=== PATIENT | female | born 1960 | race Caucasian/White ===

== ENCOUNTER → 2022-01-21 14:52 | Outpatient (REF) | payer BC, OTHER, SELFPAY ==
--- NOTE | 2022-01-21 15:09 | CA_ITS ---
Transthoracic Echocardiogram Patient (Last, First, Middle): Lily Lomeli, Gender: Female Date of : 1960 Age: 61 Procedure Date: 01/21/2022 Procedure Type: Transthoracic Echocardiogram Location: [facility] Height: 165.1 cm Weight: 99.79 kg BSA: 2.06 m2 Heart Rate: bpm BP: 140 / 72 mmHg Hat Model: DARBY Referring MD: Earnest Harvey MD PhD Symptoms: EXAM PRIOR TO CHEMO Z01.818 CARDIOTOXIC CHEMO MONITORING Study Quality: Fair ECG Rhythm: Sinus Conclusions: - The left ventricular systolic function is normal. The calculated ejection fraction is 69% by biplane method. - Cannot exclude basal inferior hypokinesis. - No obvious valvular pathology seen on this study. Findings Left Ventricle Normal left ventricular cavity size. There is normal left ventricular wall thickness. The left ventricular systolic function is normal. The calculated ejection fraction is 69% by biplane method. Diastolic function is normal for age. LV peak GLS -16.3%, but could be underestimate. Cannot exclude basal inferior hypokinesis. Right Ventricle Normal right ventricular cavity size and systolic function. Atria Both atria are normal in size. Aortic Valve The aortic valve was not well visualized. There is no aortic valve stenosis. There is no aortic valve regurgitation. Mitral Valve The mitral valve appears normal. There is no mitral valve regurgitation. There is no mitral valve stenosis. Pulmonic Valve The pulmonic valve is likely normal. Tricuspid Valve There is trace tricuspid valve regurgitation. Tricuspid regurgitation envelope is inadequate for calculation of right ventricular systolic pressure. Great Vessels The asc aorta is normal in size. Venous The inferior vena cava is normal in size and collapses greater than 50% with inspiration. Pericardium/Pleural There is no evidence of pericardial effusion. Prior Study Comparison No prior study available for comparison. Recommendations, Care & Conclusions No obvious valvular pathology seen on this study. Measurements 2D Linear Measurements IVSd: 1.04 0.6-0.9/0.6-1.0 cm LVIDd: 4.15 3.9-5.3/4.2-5.9 cm LVIDd Index: 2.01 2.4-3.2/2.2-3.1 cm/m2 LVIDs: 2.94 2.0-3.6 cm LVPWd: 0.85 0.7-1.1 cm LA Diam: 3.70 2.7-3.8/3.0-4.0 cm LAIDs Index: 1.80 1.5-2.3 cm/m2 LV Mass: 154.60 67-162/88-224 g LV Mass Index: 75.05 43-95/49-115 g/m2 LVOT Diam: 2.00 3.0+(-)1.3 cm 2D Systolic Function EF 4C: 71.10 >55% EF 2C: 64.80 >55% EF BiP: 68.70 >55% Mitral Valve MV Pk E: 0.56 MV PK A: 0.90 MV Decel Time: 201.00 E/A: 0.60 E'Lateral: 8.16 E'Medial: 6.31 E/E' Med: 8.90 E/E' Lat: 6.90 PHT: 59.00 MVA PHT: 3.73 Decel [place]: 2.80 Aortic Valve AoV Pk Casey: 1.88 AoV Mn Casey: 1.36 AoV VTI: 0.37 AoV Pk Grad: 14.00 Aov Mn Grad: 8.00 MADHU Cont.VTI: 2.50 LVOT LVOT Pk Casey: 1.49 LVOT Mn Casey: 1.02 LVOT VTI: 0.30 LVOT Pk Grad: 9.00 LVOT Mn Grad: 5.00 LVOT Diam: 2.00 LVOT Area: 3.14 Diastolic Function MV Pk E: 0.56 MV Pk A: 0.90 E/A: 0.60 E'Medial: 6.31 E/E' Med: 8.90 E' Laterial: 8.16 E/E' Lat: 6.90 Right Ventricle TAPSE (mm): 20.70 TVS' Casey: 16.70 Tricuspid Valve RA Press: 3.00 Great Vessels Aorta Sinus of Valsalva: 2.98 2.0-3.[address] [place]: 2.20 1.7-3.4 cm Ao Asc: 3.30 2.1-3.4 cm Updated in Other Vendor System with Status of Final Xavi Tao MD electronically signed on 01/21/2022 4:51:25 PM with status of Final
== END ==
LOC: HO.CARD 14:52
PROVIDERS: Visit Provider Internal Medicine Hematology & Oncology
DX: Z01.818 Encounter for other preprocedural examination (principal)
CPT/HCPCS: 93306; 93356